=== PATIENT | male | born 1940 | race Caucasian/White ===

== ENCOUNTER → 2018-07-04 | Outpatient (CLI) | payer MEDICARE, BC ==
--- NOTE | 2018-07-04 16:59 | KCIC ---
Examination: 2 views of the bilateral hips with frontal view of the pelvis and 3 views of the bilateral knees HISTORY: History of chronic knee, hip pain COMPARISON: None available FINDINGS: Moderate joint space loss identified in the bilateral hip joint. The bilateral femoral heads within the acetabula. The alignment of the knee joint grossly appears unremarkable. Mild joint space loss identified in the medial compartment of the bilateral knees. There is no acute fracture or dislocation identified. No significant knee joint effusion identified IMPRESSION: 1. Moderate degenerative changes bilateral hip joints. 2. 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 Electronically signed by: Misael Feliz MD (07/04/2018 4:56 PM) [id number]
== END | disposition home or self-care (01) ==
LOC: KCIC 14:15
PROVIDERS: ATTEND Physician Assistant Medical
DX: M16.0 Bilateral primary osteoarthritis of hip (principal); M17.0 Bilateral primary osteoarthritis of knee
CPT/HCPCS: 73521; 73562

== ENCOUNTER → 2018-09-21 | Outpatient (CLI) | payer MEDICARE, BC ==
--- NOTE | 2018-09-21 10:16 | RAD ---
Left wrist, 3 views, 09/21/2018: HISTORY: Fall, pain There is a comminuted fracture of the distal radius. A fracture line involves the articular surface with a mild cortical offset. Mild underlying distal radial deformity suggests this represents an acute fracture superimposed upon an old healed fracture. An old nonunited ulnar styloid fracture is present. There are mild degenerative changes at the wrist. Left forearm, 2 views, 09/21/2018: No additional fracture or bony abnormality is detected. Left hand, 3 views, 09/21/2018: There are mild degenerative changes at scattered interphalangeal joints. No additional fracture or dislocation is evident. IMPRESSION: 1. Acute distal radial fracture superimposed upon an old healed fracture. There is mild depression of a fracture fragment involving the distal radial articular surface. 2. Old nonunited ulnar styloid fracture. Electronically signed by: Kevin Padron MD (09/21/2018 10:13 AM) [facility]
== END | disposition home or self-care (01) ==
LOC: RAD 09:13
PROVIDERS: ATTEND Physician Assistant Medical
DX: S52.502A Unspecified fracture of the lower end of left radius, initial encounter for closed fracture (principal); S52.612K Displaced fracture of left ulna styloid process, subsequent encounter for closed fracture with nonunion; M79.89 Other specified soft tissue disorders; Z87.81 Personal history of (healed) traumatic fracture; W00.9XXA Unspecified fall due to ice and snow, initial encounter; Y93.89 Activity, other specified; Y92.89 Other specified places as the place of occurrence of the external cause; Y99.8 Other external cause status
CPT/HCPCS: 73090; 73110; 73130

== ENCOUNTER → 2019-09-26 | Outpatient (CLI) | payer MEDICARE, BC ==
--- NOTE | 2019-09-26 13:24 | KCIC ---
EXAM: Bilateral shoulders, 3 views; right hand, 3 views; pelvis and bilateral hips, 3 views; cervical spine, 5 views. HISTORY: Pain. COMPARISON: None. FINDINGS: Bilateral shoulders: 3 views of both shoulders are obtained. There is no fracture, dislocation or subluxation. There is mild bilateral acromial clavicular joint subchondral sclerosis and marginal spurring. This includes tiny inferiorly directed distal clavicular spurs. Pelvis and bilateral hips: A frontal view the pelvis and frog-leg views of both hips are obtained. There is no fracture, dislocation or subacute fixation. There is minimal marginal subchondral cyst formation. Right hand: 3 views of the right hand are obtained. There is no fracture, dislocation or subluxation. There is second metacarpal phalangeal joint space narrowing. There is also first carpometacarpal joint space narrowing and spurring. Cervical spine: 5 views of the cervical spine are obtained. There is no listhesis. The vertebral bodies are normal in height and the disc spaces are preserved. There is multilevel left greater than right facet arthropathy. IMPRESSION: 1. Mild bilateral acromioclavicular osteoarthritis. 2. Minimal bilateral hip osteoarthritis. 3. Mild right second metacarpophalangeal joint space narrowing and first m carpometacarpal joint space narrowing and spurring. 4. Multilevel degenerative change involving the cervical spine, described above. 5. No acute osseous finding. Electronically signed by: Yanira Pena MD (09/26/2019 1:21 PM) [id number]
== END ==
LOC: KCIC 11:37
PROVIDERS: ATTEND Physician Assistant Medical
DX: M19.011 Primary osteoarthritis, right shoulder (principal); M19.012 Primary osteoarthritis, left shoulder; M16.0 Bilateral primary osteoarthritis of hip; M47.812 Spondylosis without myelopathy or radiculopathy, cervical region; M25.841 Other specified joint disorders, right hand
CPT/HCPCS: 72050; 73030; 73130; 73521

== ENCOUNTER → 2021-09-01 | Outpatient (CLI) | payer MEDICARE, BC ==
--- NOTE | 2021-09-01 16:43 | RAD ---
MR#: [id number] Date of Study: 09/01/2021 Ordering Physician: JILL BETHEA, Referring Physician: JILL BETHEA, Tech: Doris Ruiz RVT, [facility] APPROVED REPORT Patient Location : OUT-PATIENT Findings Limited grayscale images the bilateral saphenofemoral junctions are grossly unremarkable. On the right side the great saphenous vein measures approximately 5.6 mm and has no evidence of reflu x On the left side the great saphenous vein measures approximately 5.5 mm and has no significant reflux . The bilateral lesser saphenous veins did not show any evidence of reflux. Critical Notification Critical Value: No <Conclusion> 1. Negative for reflux in the bilateral greater and lesser saphenous veins Signed by : Ryan Soni, Electronically Approved : 09/01/2021 16:43:04
== END ==
LOC: US 13:16
PROVIDERS: ATTEND Internal Medicine Cardiovascular Disease
DX: I87.2 Venous insufficiency (chronic) (peripheral) (principal)
CPT/HCPCS: 93970